=== PATIENT | female | born 1965 | race Caucasian/White ===

== ENCOUNTER → 2023-04-19 09:55 | Outpatient (BNVA) | payer MEDICARE, SELFPAY | PROVIDERS: PCP Nurse Practitioner Family; Visit Provider Specialist | DX: S42.292A Other displaced fracture of upper end of left humerus, initial encounter for closed fracture; W22.01XA Walked into wall, initial encounter | CPT/HCPCS: 24530; 73030; 99204 ==

== ENCOUNTER → 2023-05-17 09:27 | Outpatient (BNVA) | payer MEDICARE, SELFPAY | PROVIDERS: PCP Nurse Practitioner Family; Visit Provider Specialist | DX: S42.292A Other displaced fracture of upper end of left humerus, initial encounter for closed fracture; W22.09XA Striking against other stationary object, initial encounter | CPT/HCPCS: 73030; 99024 ==

== ENCOUNTER 2023-05-29 06:00 | Outpatient (RCR) | payer MEDICARE, SELFPAY | END 2023-06-03 23:59 | disposition home or self-care (01) | LOC: APT 06:00 | PROVIDERS: Visit Provider Specialist | DX: M84.312 Stress fracture, left shoulder (principal) | CPT/HCPCS: 97110; 97161; 97530 ==

== ENCOUNTER → 2023-06-01 10:45 | Outpatient (BNVA) | payer MEDICARE, SELFPAY | PROVIDERS: PCP Nurse Practitioner; Visit Provider Nurse Practitioner | DX: E55.9 Vitamin D deficiency, unspecified (principal); I10 Essential (primary) hypertension; E78.2 Mixed hyperlipidemia | CPT/HCPCS: 80053; 80061; 82306; 82607; 83735; 84443; 85025 ==

== ENCOUNTER 2023-06-04 06:00 | Outpatient (RCR) | payer MEDICARE, SELFPAY | END 2023-07-04 23:59 | disposition home or self-care (01) | LOC: APT 06:00 | PROVIDERS: PCP Nurse Practitioner; Visit Provider Specialist | DX: S42.202D Unspecified fracture of upper end of left humerus, subsequent encounter for fracture with routine healing (principal); X58.XXXD Exposure to other specified factors, subsequent encounter | CPT/HCPCS: 97110; 97112; 97140; 97530 ==

== ENCOUNTER 2023-07-05 06:00 | Outpatient (RCR) | payer MEDICARE, SELFPAY | END 2023-08-03 23:59 | disposition home or self-care (01) | LOC: APT 06:00 | PROVIDERS: PCP Nurse Practitioner; Visit Provider Specialist | DX: M84.312 Stress fracture, left shoulder (principal) | CPT/HCPCS: 97110; 97140; 97530 ==

== ENCOUNTER → 2023-07-19 10:46 | Outpatient (BNVA) | payer MEDICARE, SELFPAY | PROVIDERS: PCP Nurse Practitioner; Visit Provider Specialist | DX: S42.292D Other displaced fracture of upper end of left humerus, subsequent encounter for fracture with routine healing; F43.12 Post-traumatic stress disorder, chronic; X58.XXXD Exposure to other specified factors, subsequent encounter | CPT/HCPCS: 73030; 99213 ==

== ENCOUNTER 2023-08-04 06:00 | Outpatient (RCR) | payer MEDICARE, SELFPAY | END 2023-09-03 23:59 | disposition home or self-care (01) | LOC: APT 06:00 | PROVIDERS: PCP Nurse Practitioner; Visit Provider Specialist | DX: M84.312 Stress fracture, left shoulder (principal) | CPT/HCPCS: 97110; 97530 ==

== ENCOUNTER 2023-09-04 06:00 | Outpatient (RCR) | payer MEDICARE, SELFPAY | END 2023-10-04 23:59 | disposition home or self-care (01) | LOC: APT 06:00 | PROVIDERS: PCP Nurse Practitioner; Visit Provider Specialist | DX: M84.312 Stress fracture, left shoulder (principal) | CPT/HCPCS: 97110; 97112; 97530 ==

== ENCOUNTER 2023-10-05 06:00 | Outpatient (RCR) | payer MEDICARE, SELFPAY | END 2023-11-02 23:59 | disposition home or self-care (01) | LOC: APT 06:00 | PROVIDERS: PCP Nurse Practitioner; Visit Provider Specialist | DX: M84.312 Stress fracture, left shoulder (principal); X58.XXXD Exposure to other specified factors, subsequent encounter | CPT/HCPCS: 97110; 97530 ==

== ENCOUNTER → 2023-10-25 15:25 | Outpatient (BNVA) | payer MEDICARE, SELFPAY | PROVIDERS: PCP Nurse Practitioner; Visit Provider Nurse Practitioner Family | DX: R39.9 Unspecified symptoms and signs involving the genitourinary system (principal) | CPT/HCPCS: 81000 ==

== ENCOUNTER → 2023-11-02 15:23 | Outpatient (BNVA) | payer MEDICARE, SELFPAY | PROVIDERS: PCP Nurse Practitioner; Visit Provider Nurse Practitioner | DX: I10 Essential (primary) hypertension (principal); E55.9 Vitamin D deficiency, unspecified | CPT/HCPCS: 80053; 82306; 85025 ==

== ENCOUNTER 2023-11-24 11:31 | Outpatient (CLI) | payer MEDICARE, SELFPAY ==
--- NOTE | 2023-11-24 12:00 | US_ITS ---
WS: [id number] ULTRASOUND RENAL TECHNIQUE: Ultrasound examination of both kidneys. CLINICAL INFORMATION: Z87.442 - Personal history of urinary calculi COMPARISON: None. FINDINGS: RIGHT: Right kidney is normal in size and appearance. Echogenicity: Normal. Cortical thickness: 0.9 cm; Normal. Hydronephrosis: None. Perinephric fluid: None. Right kidney measures: 6.1 cm x 3.8 cm x 3.5 cm. LEFT: Small simple cyst LEFT kidney described below. Left kidney is normal in size and appearance. Echogenicity: Normal. Cortical thickness: 1.4 cm; Normal. Hydronephrosis: None. Perinephric fluid: None. Left kidney measures: 10.6 cm x 3.8 cm x 5.7 cm. Normal visualized aorta. Normal bladder. IMPRESSION: 1. No hydronephrosis in either kidney. 2. Atrophic RIGHT kidney. 3. Small simple cyst LEFT kidney measuring 8 x 6 mm 4. Normal bladder.
== END 2023-11-24 11:32 | disposition home or self-care (01) ==
LOC: RAD 11:31
PROVIDERS: PCP Nurse Practitioner; Visit Provider Nurse Practitioner
DX: Z87.442 Personal history of urinary calculi (principal); N26.1 Atrophy of kidney (terminal); N28.1 Cyst of kidney, acquired
CPT/HCPCS: 76770

== ENCOUNTER → 2024-02-05 14:04 | Outpatient (BNVA) | payer MEDICARE, SELFPAY | PROVIDERS: PCP Nurse Practitioner; Visit Provider Nurse Practitioner | DX: I10 Essential (primary) hypertension (principal); E55.9 Vitamin D deficiency, unspecified; N18.30 Chronic kidney disease, stage 3 unspecified | CPT/HCPCS: 80053; 82306 ==

== ENCOUNTER → 2024-04-22 12:50 | Outpatient (BNVA) | payer MEDICARE, SELFPAY | PROVIDERS: PCP Nurse Practitioner; Visit Provider Nurse Practitioner | DX: N18.31 Chronic kidney disease, stage 3a (principal) | CPT/HCPCS: 81000 ==

== ENCOUNTER 2024-05-14 12:59 | Outpatient (CLI) | payer MEDICARE, SELFPAY ==
--- NOTE | 2024-05-14 13:00 | MM_ITS ---
WS: [id number] BILATERAL 3D TOMOSYNTHESIS DIGITAL SCREENING MAMMOGRAPHY WITH CAD CLINICAL INFORMATION: Z12.31 - Encounter for screening mammogram for malignant ... HISTORY: Screening mammogram. No current complaints. COMPARISON: None. TECHNIQUE: Bilateral CC and MLO views. FINDINGS: Scattered fibroglandular densities bilaterally. No suspicious focal mass, asymmetry, calcifications, or architectural distortion. No evidence of malignancy. MM/MM scr tomosynthesis [id number] IMPRESSION: DENSITY: There are scattered areas of fibroglandular density. BI-RADS: 1 - Negative. FOLLOW UP: 1 Year Follow-up Recommend return to annual screening mammography.
== END 2024-05-14 13:00 | disposition home or self-care (01) ==
LOC: MOBLMAM 13:06
PROVIDERS: PCP Nurse Practitioner; Visit Provider Nurse Practitioner
DX: Z12.31 Encounter for screening mammogram for malignant neoplasm of breast (principal); R92.323 Mammographic fibroglandular density, bilateral breasts
CPT/HCPCS: 77063; 77067; 81000

== ENCOUNTER → 2024-07-08 11:29 | Outpatient (BNVA) | payer MEDICARE, SELFPAY | PROVIDERS: PCP Nurse Practitioner; Visit Provider Nurse Practitioner | DX: I10 Essential (primary) hypertension (principal); E78.2 Mixed hyperlipidemia; E55.9 Vitamin D deficiency, unspecified; R00.2 Palpitations | CPT/HCPCS: 80053; 80061; 84443 ==

== ENCOUNTER → 2024-12-19 13:32 | Outpatient (BNVA) | payer MEDICARE, SELFPAY | PROVIDERS: PCP Nurse Practitioner; Visit Provider Nurse Practitioner | DX: I10 Essential (primary) hypertension (principal) | CPT/HCPCS: 80053; 80061 ==

== ENCOUNTER → 2025-03-05 14:08 | Outpatient (BNVA) | payer MEDICARE, SELFPAY | PROVIDERS: PCP Nurse Practitioner; Visit Provider Nurse Practitioner | DX: E78.2 Mixed hyperlipidemia (principal); E55.9 Vitamin D deficiency, unspecified | CPT/HCPCS: 80053; 82306; 84443 ==

== ENCOUNTER 2025-03-06 12:49 | Outpatient (CLI) | payer MEDICARE, SELFPAY ==
--- NOTE | 2025-03-06 13:45 | MR_ITS ---
WS: [id number] MRI BRAIN WITHOUT CONTRAST HISTORY: R26.81 - Unsteadiness on feet COMPARISON: None available. TECHNIQUE: Diffusion imaging, multiplanar T1, T2 and FLAIR imaging obtained. No evidence for acute infarct or hemorrhage. Irvin-white matter differentiation is normal. Mild symmetric volume loss. There are a few scattered T2 and FLAIR signal hyperintensities in white matter disease. Prior lacunar infarct in the RIGHT caudate body. No hippocampal atrophy. Lateral ventricles are slightly dilated. No inferior displacement of cerebellar tonsils. The sella turcica and pituitary gland are unremarkable. Dural venous sinuses and [place] demonstrate no abnormality on this unenhanced studies. Paranasal sinuses: Clear. Mastoid air cells: Normal. Calvarium and scalp: Intact. MR/MR head wo con* [id number] IMPRESSION: 1. No acute infarct or hemorrhage. 2. Mild cerebral atrophy and small vessel disease. 3. Prior lacunar infarct RIGHT caudate body. 4. Mild ventriculomegaly on the basis of atrophy.
== END 2025-03-06 12:50 | disposition home or self-care (01) ==
LOC: RAD 12:50
PROVIDERS: PCP Nurse Practitioner; Visit Provider Nurse Practitioner
DX: I67.89 Other cerebrovascular disease (principal); R26.81 Unsteadiness on feet; Z86.73 Personal history of transient ischemic attack (TIA), and cerebral infarction without residual deficits
CPT/HCPCS: 70551

== ENCOUNTER 2025-06-03 12:55 | Outpatient (CLI) | payer MEDICARE, SELFPAY ==
--- NOTE | 2025-06-03 13:30 | USCV_ITS ---
Katie Weber Age: 59 Gender: F : 1965 Exam Date: 06/03/2025 13:29 Ordering Phys: Dylon Marcus Technologist: Exam [place] [facility] [place]: cp sob BP: 130 / 70 HR: 67 Rhythm: Sinus Technical Quality: Adequate MEASUREMENTS (Male / Female) Normal Values 2D ECHO LV Diastolic Diameter PLAX 3.8 cm 4.2 - 5.9 / 3.9 - 5.3 cm IVS Diastolic Thickness 1.3 cm 0.6 - 1.0 / 0.6 - 0.9 cm IVS Systolic Thickness 1.5 cm LVPW Diastolic Thickness 1.0 cm 0.6 - 1.0 / 0.6 - 0.9 cm LVPW Systolic Thickness 1.3 cm LVOT Diameter 2.0 cm LV Ejection Fraction 2D Teich 64.9 % LV Ejection Fraction MOD 4C 74.2 % LV Ejection Fraction MOD 2C 79.2 % LV Ejection Fraction 2C AL 79.8 % LA Diameter 3.2 cm RA Systolic Volume 4C AL 19.8 ml RA Systolic Volume 4C MOD 18.9 ml LA Sys Volume AL 37.5 cm cubed LA Sys Volume Index AL 21.1 cm cubed/m squared Aorta at Sinotubular Diameter 2.0 cm IVC Diameter 1.5 cm M-MODE LA Ao Ratio MM 1.8 AV Cusp Separation MM 1.8 cm DOPPLER AV Peak Velocity 382.7 cm/s LVOT Peak Velocity 86.0 cm/s AV Area Cont Eq vti 1.5 cm squared AV Area Cont Eq pk 0.7 cm squared MV Peak Velocity 129.0 cm/s MV Area PHT 2.5 cm squared Mitral E to A Ratio 1.0 TV Peak Velocity 294.0 cm/s TR Peak Velocity 359.0 cm/s TR Peak Gradient 51.6 mmHg TV Peak E Velocity 108.0 cm/s PV Peak Velocity 98.0 cm/s FINDINGS Left Ventricle Normal left ventricular size and systolic function, EF 60-65%. No regional wall motion abnormalities. Right Ventricle Normal in size and function Right Atrium Normal right atrial size. Left Atrium Normal left atrial size. IA Septum Grossly normal Mitral Valve Structurally normal mitral valve. Mild mitral regurgitation Aortic Valve Structurally normal aortic valve. Mild aortic stenosis with aortic valve area 1.46 cm2 and mean gradient of 8.55 mmHg. Moderate aortic regurgitation Tricuspid Valve Mild tricuspid regurgitation. RVSP is 50-55 mmHg. This is consistent with moderate pulmonary hypertension Pulmonic Valve Not well visualized Pericardium Normal Aorta Normal in size IVC Appears to be normal CONCLUSIONS LV systolic function is normal with EF of 60-65% Mild mitral regurgitation Mild aortic stenosis Moderate aortic regurgitation Mild tricuspid regurgitation. Moderate pulmonary hypertension No comparison studies are available. Bowen Mcmillan MD (Electronically Signed) Final Date: 08 June 2025 13:47 S
== END 2025-06-03 12:56 | disposition home or self-care (01) ==
LOC: RAD 12:57
PROVIDERS: PCP Nurse Practitioner; Visit Provider Nurse Practitioner
DX: R01.1 Cardiac murmur, unspecified (principal)
CPT/HCPCS: 93306

== ENCOUNTER → 2025-06-19 09:32 | Outpatient (BNVA) | payer MEDICARE, SELFPAY | PROVIDERS: PCP Nurse Practitioner; Visit Provider Internal Medicine Cardiovascular Disease | DX: R42 Dizziness and giddiness (principal); I10 Essential (primary) hypertension; E78.2 Mixed hyperlipidemia; I35.2 Nonrheumatic aortic (valve) stenosis with insufficiency; F17.200 Nicotine dependence, unspecified, uncomplicated | CPT/HCPCS: 99204 ==